=== PATIENT | female | born 1950 | race Asian ===

== ENCOUNTER 2021-05-10 11:55 | Emergency (ER) | payer MEDICARE, OTHER ==
[~2021-05-10] VITALS: Ht 152.4 cm; Wt 64.0 kg
[2021-05-10 11:59] VITALS: BP 138/80
[2021-05-10] MEDS ORDERED: BACITRACIN 0.9 GM PACKET OINTMENT TP ONE (16:00)
[2021-05-10] MEDS ORDERED: IBUPROFEN 600 MG TABLET PO ONE (16:00)
[2021-05-10] MEDS ORDERED: PERTUSS(ACELL),DIPH,TET VAC/PF 0.5 ML SYRINGE IM. ONE (16:00)
== END 2021-05-10 16:25 | disposition home or self-care (01) ==
LOC: EMS 12:27
DX: S80.01XA Contusion of right knee, initial encounter (principal); S30.0XXA Contusion of lower back and pelvis, initial encounter; S90.32XA Contusion of left foot, initial encounter; W19.XXXA Unspecified fall, initial encounter; Y93.89 Activity, other specified; Y92.89 Other specified places as the place of occurrence of the external cause; Y99.8 Other external cause status
CPT/HCPCS: 72100; 90471; 90715; 99284